=== PATIENT | female | born 1965 | race Caucasian/White ===

== ENCOUNTER 2017-02-25 13:33 | Emergency (ER) | payer MEDICAID ==
[~2017-02-25] VITALS: Ht 165.1 cm; Wt 92.0 kg
[2017-02-25 14:16] VITALS: BP 180/102
[2017-02-25] MEDS ORDERED: CLON0.5T PO (14:29)
[2017-02-25] MEDS ORDERED: MORPHINE SULFATE 4 MG/ML, 1ML IVPush PRN (14:30)
[2017-02-25] MEDS ORDERED: ONDANSETRON 2MG/ML, 2ML IVPush ONE (14:30)
[2017-02-25] MEDS ORDERED: SODIUM CHLORIDE 0.9% 1,000ML IVBOLUS ONE (14:30)
[2017-02-25] MEDS ORDERED: SODIUM CHLORIDE FLUSH 10ML SYR IVF ONE (14:30)
[2017-02-25 14:51] LABS: HEMATOCRIT 41.8 % (34.6-47.8); HEMOGLOBIN 14.1 g/dL (11.7-16.4); WHITE BLOOD COUNT 10.8 x10^3/uL (3.4-10)
[2017-02-25] MEDS ORDERED: ONDANSETRON 2MG/ML, 2ML ONE (14:56)
[2017-02-25] MEDS ORDERED: MORPHINE SULFATE 4 MG/ML, 1ML ONE (14:56)
[2017-02-25 15:03] LABS: BLOOD UREA NITROGEN 17 mg/dL (7-18)
[2017-02-25 15:07] LABS: ASPARTATE AMINO TRANSFERASE 33 U/L (15-37)
== END 2017-02-25 16:38 | disposition home or self-care (01) ==
LOC: ED 15:26
DX: R10.84 Generalized abdominal pain (principal); R19.7 Diarrhea, unspecified; J45.909 Unspecified asthma, uncomplicated; F41.9 Anxiety disorder, unspecified; Z90.710 Acquired absence of both cervix and uterus; Z90.89 Acquired absence of other organs
CPT/HCPCS: 36415; 80053; 81003; 83690; 85025; 85610; 85730; 93005; 96361; 96374; 96375; 99285; J2405; J7030

== ENCOUNTER 2017-03-16 09:23 | Emergency (ER) | payer MEDICAID ==
[~2017-03-16] VITALS: Ht 165.1 cm; Wt 92.4 kg
[~2017-03-16 09:23] MED LIST: CLON0.5T PO
[2017-03-16] MEDS ORDERED: ASPIRIN 81 MG TABLET CHEW ONE (10:59)
[2017-03-16] MEDS ORDERED: ASPIRIN 81 MG TABLET CHEW PO ONE (11:00)
[2017-03-16 11:04] LABS: HEMATOCRIT 43.2 % (34.6-47.8); HEMOGLOBIN 14.5 g/dL (11.7-16.4); WHITE BLOOD COUNT 9.5 x10^3/uL (3.4-10)
[2017-03-16 11:17] LABS: ASPARTATE AMINO TRANSFERASE 20 U/L (15-37); BLOOD UREA NITROGEN 15 mg/dL (7-18)
[2017-03-16 11:22] LABS: IS PT STATUS REG ER OR PRE ER? YES
[2017-03-16 12:02] VITALS: BP 159/95
== END 2017-03-16 12:06 | disposition home or self-care (01) ==
LOC: ED 09:57
DX: B34.9 Viral infection, unspecified (principal); J45.909 Unspecified asthma, uncomplicated
CPT/HCPCS: 36415; 71010; 80053; 83605; 84484; 85025; 93005; 99285

== ENCOUNTER 2017-03-20 10:23 | Emergency (ER) | payer MEDICAID ==
[~2017-03-20] VITALS: Ht 165.1 cm; Wt 93.7 kg
[2017-03-20] MEDS ORDERED: methylPREDNISolone SOD SUCC 125 MG/2 ML IVP ONE (11:00)
[2017-03-20] MEDS ORDERED: MORPHINE SULFATE 4 MG/ML, 1ML IVPush PRN (11:00)
[2017-03-20] MEDS ORDERED: SODIUM CHLORIDE FLUSH 10ML SYR IVF ONE (11:00)
[2017-03-20] MEDS ORDERED: MAALOX/HYOSCYAMINE/LIDOCAINE 45 ML BTL PO ONE (11:00)
[2017-03-20] MEDS ORDERED: SODIUM CHLORIDE 0.9% 1,000ML IVBOLUS ONE (11:00)
[2017-03-20] MEDS ORDERED: ALBUTEROL SULFATE 2.5 MG/3 ML NPPB ONE (11:00)
[2017-03-20] MEDS ORDERED: ONDANSETRON 2MG/ML, 2ML IVPush ONE (11:00)
[2017-03-20] MEDS ORDERED: ONDANSETRON 2MG/ML, 2ML ONE (11:02)
[2017-03-20] MEDS ORDERED: morphine SULFATE 10 MG/ML, 1ML ONE (11:02)
[2017-03-20] MEDS ORDERED: methylPREDNISolone SOD SUCC 125 MG/2 ML ONE (11:02)
[2017-03-20] MEDS ORDERED: ALBUTEROL SULFATE 2.5 MG/3 ML ONE (11:04)
[2017-03-20 11:16] LABS: HEMATOCRIT 41.4 % (34.6-47.8); HEMOGLOBIN 13.8 g/dL (11.7-16.4); WHITE BLOOD COUNT 12.5 x10^3/uL (3.4-10)
[2017-03-20] MEDS ORDERED: HYDROcodone/APAP 5/325 TABLET ONE (11:21)
[2017-03-20] MEDS ORDERED: ONDANSETRON ODT 4 MG ONE (11:21)
[2017-03-20 11:24] LABS: ASPARTATE AMINO TRANSFERASE 22 U/L (15-37); BLOOD UREA NITROGEN 18 mg/dL (7-18)
[2017-03-20] MEDS ORDERED: ONDANSETRON ODT 4 MG PO ONE (11:30)
[2017-03-20] MEDS ORDERED: HYDROcodone/APAP 5/325 TABLET PO ONE (11:30)
[2017-03-20] MEDS ORDERED: MAALOX/HYOSCYAMINE/LIDOCAINE 45 ML BTL ONE (11:30)
[2017-03-20 11:39] VITALS: BP 131/63
== END 2017-03-20 12:12 | disposition home or self-care (01) ==
LOC: ED 12:04
DX: B34.9 Viral infection, unspecified (principal); J45.31 Mild persistent asthma with (acute) exacerbation; R09.02 Hypoxemia
CPT/HCPCS: 36415; 71010; 80053; 83690; 85025; 94640; 99285; J7512; Q0162; J7613

== ENCOUNTER 2017-03-28 08:59 | Emergency (ER) | payer MEDICAID ==
[~2017-03-28] VITALS: Ht 165.1 cm; Wt 92.8 kg
[2017-03-28] MEDS ORDERED: METOCLOPRAMIDE 5 MG/ML, 2ML IM ONE (09:30)
[2017-03-28] MEDS ORDERED: METOCLOPRAMIDE 5 MG/ML, 2ML ONE (10:08)
[2017-03-28 10:17] LABS: WHITE BLOOD COUNT 14.4 x10^3/uL (3.4-10)
[2017-03-28 10:18] LABS: ASPARTATE AMINO TRANSFERASE 16 U/L (15-37); BLOOD UREA NITROGEN 17 mg/dL (7-18)
[2017-03-28] MEDS ORDERED: OMNIPAQUE 350 MG/ML, 100ML BOTTLE ONE (11:53)
[2017-03-28 12:43] VITALS: BP 141/79
== END 2017-03-28 12:46 | disposition home or self-care (01) ==
LOC: ED 11:04
DX: K52.9 Noninfective gastroenteritis and colitis, unspecified (principal); B96.89 Other specified bacterial agents as the cause of diseases classified elsewhere; J20.8 Acute bronchitis due to other specified organisms; R19.7 Diarrhea, unspecified; Z90.49 Acquired absence of other specified parts of digestive tract; Z90.710 Acquired absence of both cervix and uterus
CPT/HCPCS: 36415; 74022; 74177; 80053; 81003; 83690; 85025; 87046; 87324; 87899; 96372; 99285; J2765; Q9967

== ENCOUNTER 2017-06-06 08:08 | Emergency (ER) | payer MEDICAID ==
[~2017-06-06] VITALS: Ht 165.1 cm; Wt 84.4 kg
[2017-06-06 09:58] VITALS: BP 178/94
== END 2017-06-06 09:59 | disposition home or self-care (01) ==
LOC: ED 09:04
DX: G44.219 Episodic tension-type headache, not intractable (principal); J31.0 Chronic rhinitis; I10 Essential (primary) hypertension; F41.9 Anxiety disorder, unspecified; Z90.710 Acquired absence of both cervix and uterus; G43.909 Migraine, unspecified, not intractable, without status migrainosus
CPT/HCPCS: 99283

== ENCOUNTER 2018-01-08 21:59 | Emergency (ER) | payer MEDICAID ==
[~2018-01-08] VITALS: Ht 165.1 cm; Wt 87.2 kg
[2018-01-08] MEDS ORDERED: PROMETHAZINE 25 MG/ML, 1ML ONE (23:23)
[2018-01-08 23:57] LABS: BASOPHILS # (AUTO) 0.04 x10^3/uL (0-0.1); BASOPHILS % (AUTO) 0 % (0-1); EOSINOPHILS # (AUTO) 0.02 x10^3/uL (0-0.4); EOSINOPHILS % (AUTO) 0 % (1-7); LYMPHOCYTES # (AUTO) 2.54 x10^3/uL (1-3.4); LYMPHOCYTES % (AUTO) 20 % (22-44); MD NO; MEAN CORPUSCULAR HEMOGLOBIN 28.9 pg (27.0-34.8); MEAN CORPUSCULAR HGB CONC 33.5 g/dL (32.4-35.8); MEAN CORPUSCULAR VOLUME 86.2 fL (80-100); MEAN PLATELET VOLUME 8.3 fL (7.4-10.4); MONOCYTES # (AUTO) 0.67 x10^3/uL (0.2-0.8); MONOCYTES % (AUTO) 5 % (2-9); NEUTROPHILS # (AUTO) 9.29 x10^3/uL (1.8-6.8); NEUTROPHILS % (AUTO) 74 % (42-75); PLATELET COUNT 326 x10^3/uL (130-400); RED BLOOD COUNT 5.87 x10^6/uL (3.82-5.3); RED CELL DISTRIBUTION WIDTH 14.6 % (9.6-15.2)
[2018-01-09] MEDS ORDERED: PROMETHAZINE 25 MG/ML, 1ML IM ONE
[2018-01-09 00:09] LABS: ALANINE AMINOTRANSFERASE 31 U/L (12-78); ALBUMIN 3.8 g/dL (3.4-5.0); ANION GAP 7 mmol/L (5-15); CALCIUM 9.4 mg/dL (8.5-10.1); CHLORIDE 102 mmol/L (98-107)
[2018-01-09 00:14] LABS: ALKALINE PHOSPHATASE 117 U/L (45-117); BILIRUBIN,TOTAL 0.6 mg/dL (0.2-1.0); CREATININE 0.89 mg/dL (0.55-1.02); TOTAL PROTEIN 8.5 g/dL (6.4-8.2); TROPONIN I < 0.015 ng/mL (0.000-0.045)
[2018-01-09] MEDS ORDERED: OMNIPAQUE 350 MG/ML, 100ML BOTTLE ONE (01:27)
[2018-01-09] MEDS ORDERED: GOLYTELY 4,000ML ORAL.SOL PO ONE (02:30)
[2018-01-09 03:11] VITALS: BP 187/117
== END 2018-01-09 03:15 | disposition home or self-care (01) ==
LOC: ED 01-09 01:14
DX: K59.00 Constipation, unspecified (principal); R10.84 Generalized abdominal pain; R11.0 Nausea; Z90.49 Acquired absence of other specified parts of digestive tract
CPT/HCPCS: 36415; 74021; 74177; 80053; 83690; 84484; 85025; 93005; 96372; 99285; J2550; Q9967

== ENCOUNTER 2020-02-23 10:46 | Emergency (ER) | payer MEDICAID ==
[~2020-02-23] VITALS: Ht 165.1 cm; Wt 96.6 kg
--- NOTE | 2020-02-23 11:19 | NUR ---
PT WAS TOLD TO COME TO ED BY "FIRST RESPONDERS" FOR HIGH BP. PT DENIES CHEST PAIN. PT DOES HOWEVER REPORT SHE HAS BEEN HAVING PAINFUL URINATION, FREQUENCY AND FLANK PAIN. PT RESTING IN RORGAN. CONNECTED TO MONITORING EQUIPMENT
--- NOTE | 2020-02-23 11:40 | NUR ---
ekg obtained by EMT
--- NOTE | 2020-02-23 11:51 | NUR ---
cc ua sent lab at bedside for lab draw
[2020-02-23] MEDS ORDERED: ONDANSETRON ODT 4 MG ONE (11:54)
--- NOTE | 2020-02-23 11:56 | NUR ---
MEDICATED PER EMAR FOR NAUSEA VSS ON VETERINARY SURGERY TECHNICIAN UPDATED ON ESTIMATED POC
[2020-02-23] MEDS ORDERED: ONDANSETRON ODT 4 MG PO ONE (12:00)
[2020-02-23 12:07] LABS: BASOPHILS # (AUTO) 0.06 x10^3/uL (0-0.1); BASOPHILS % (AUTO) 1 % (0-1); EOSINOPHILS # (AUTO) 0.12 x10^3/uL (0-0.4); EOSINOPHILS % (AUTO) 1 % (1-7); LYMPHOCYTES # (AUTO) 3.84 x10^3/uL (1-3.4); LYMPHOCYTES % (AUTO) 33 % (22-44); MD NO; MEAN CORPUSCULAR HEMOGLOBIN 28.5 pg (27.0-34.8); MEAN CORPUSCULAR HGB CONC 32.3 g/dL (32.4-35.8); MEAN CORPUSCULAR VOLUME 88.3 fL (80-100); MEAN PLATELET VOLUME 8.3 fL (7.4-10.4); MONOCYTES # (AUTO) 0.98 x10^3/uL (0.2-0.8); MONOCYTES % (AUTO) 8 % (2-9); NEUTROPHILS % (AUTO) 57 % (42-75); PLATELET COUNT 286 x10^3/uL (130-400); RED BLOOD COUNT 5.54 x10^6/uL (3.82-5.3); RED CELL DISTRIBUTION WIDTH 15.7 % (9.6-15.2)
[2020-02-23 12:10] LABS: ALBUMIN 3.1 g/dL (3.4-5.0); ANION GAP 4 mmol/L (5-15); CALCIUM 9.1 mg/dL (8.5-10.1); CHLORIDE 108 mmol/L (98-107)
[2020-02-23 12:11] LABS: CREATININE 1.25 mg/dL (0.55-1.02)
--- NOTE | 2020-02-23 13:06 | NUR ---
with reassessment nausea improved Lab called to expedite ua analysis- they will post results momentarilly
[2020-02-23 13:07] LABS: MICROSCOPIC INDICATED
[2020-02-23] MEDS ORDERED: HYDROmorphone 1 MG/ML, 1ML INJ IM ONE (13:30)
[2020-02-23 13:57] VITALS: BP 179/78
== END 2020-02-23 13:58 | disposition home or self-care (01) ==
LOC: ED 13:23
DX: I10 Essential (primary) hypertension (principal); R10.9 Unspecified abdominal pain; R11.2 Nausea with vomiting, unspecified; Z90.49 Acquired absence of other specified parts of digestive tract
CPT/HCPCS: 36415; 80048; 81001; 82040; 85025; 93005; 99284; Q0162